=== PATIENT | male | born 1945 | race Asian ===

== ENCOUNTER 2016-04-26 10:15 | Outpatient (RCR) | payer OTHER | END 2016-05-22 | disposition home or self-care (01) | LOC: PTY 10:15 | DX: M75.82 Other shoulder lesions, left shoulder (principal); M25.512 Pain in left shoulder; G89.29 Other chronic pain | CPT/HCPCS: 97035; 97110; 97140; G0283 ==

== ENCOUNTER 2016-06-01 11:00 | Outpatient (RCR) | payer OTHER | END 2016-06-19 | disposition home or self-care (01) | LOC: PTY 11:00 | DX: M75.82 Other shoulder lesions, left shoulder (principal); M25.512 Pain in left shoulder; G89.29 Other chronic pain | CPT/HCPCS: 97035; 97110; 97140; G0283 ==

== ENCOUNTER 2016-06-22 15:07 | Outpatient (RCR) | payer OTHER | END 2016-07-20 | disposition home or self-care (01) | LOC: PTY 15:07 | DX: M75.82 Other shoulder lesions, left shoulder (principal); M25.512 Pain in left shoulder; G89.29 Other chronic pain; M75.02 Adhesive capsulitis of left shoulder | CPT/HCPCS: 97035; 97110; 97140; G0283 ==